=== PATIENT | male | born 1985 | race Caucasian/White ===

== ENCOUNTER 2017-07-08 17:32 | Emergency (ER) | payer SELFPAY ==
[~2017-07-08] VITALS: Ht 177.8 cm; Wt 79.4 kg
[~2017-07-08 17:32] MED LIST: BACTROBAN OINT22 GM PO; TOBREX OPHTH S2.5 ML OPH
[2017-07-08 18:17] LABS: BILIRUBIN NEGATIVE (NEGATIVE); BLOOD TRACE-INTACT (NEGATIVE); CLARITY CLEAR (CLEAR); COLOR YELLOW (YELLOW); GLUCOSE NEGATIVE (NEGATIVE); KETONE NEGATIVE (NEGATIVE); LEUKO ESTERASE 1+ (NEGATIVE); NITRITE NEGATIVE (NEGATIVE); PH 5.5 (5.0-9.0); SPECIFIC GRAVITY <= 1.005 (1.005-1.030); UROBILINOGEN 0.2 E.U./dl (0.2-1.0)
[2017-07-08 18:23] LABS: BACTERIA TRACE
== END 2017-07-08 19:01 | disposition home or self-care (01) ==
LOC: ED 17:32
PROVIDERS: Nurse Practitioner
DX: N34.2 Other urethritis (principal); A64 Unspecified sexually transmitted disease; F17.200 Nicotine dependence, unspecified, uncomplicated

== ENCOUNTER 2018-01-13 11:42 | Emergency (ER) | payer SELFPAY ==
[~2018-01-13] VITALS: Ht 175.2 cm; Wt 83.9 kg
[2018-01-13 12:19] LABS: BASO # 0.1 10*3/uL (0.0-0.1); BASO % 0.7 % (0.0-1.0); EOS # 0.5 10*3/uL (0.0-0.4); EOS % 4.7 % (1.0-4.0); HEMATOCRIT 45.3 % (42.0-52.0); HEMOGLOBIN 15.4 g/dl (14.0-18.0); LYMPH # 3.1 10*3/uL (1.3-4.4); LYMPH % 31.1 % (27.0-41.0); MEAN CELL VOLUME 93.2 fl (80.0-94.0); MEAN CORPUSCULAR HGB 31.7 pg (27.0-31.0); MEAN PLATELET VOLUME 9.5 fl (9.6-12.3); MONO % 10.4 % (3.0-9.0); NEUT # 5.2 10*3/uL (2.3-7.9); NEUT % 52.8 % (47.0-73.0); PLATELET COUNT AUTOMATED 220 10*3/uL (130-400); RED BLOOD COUNT 4.86 10*6/uL (4.50-5.90); RED CELL DISTRI WIDTH 12.8 % (0-14.5); WHITE BLOOD COUNT 9.8 10*3/uL (4.8-10.8)
[2018-01-13 12:33] LABS: ALBUMIN 4.2 gm/dl (3.1-4.5); ALKALINE PHOSPHATASE 85 U/L (45-117); BUN 8 mg/dl (7-24); CHLORIDE 103 mmol/L (98-107); CREATININE 1.04 mg/dL (0.70-1.30); POTASSIUM 5.1 mmol/L (3.5-5.1); SGOT/AST 65 IU/L (3-35); SGPT/ALT 108 U/L (12-78); SODIUM 140 mmol/L (136-145); TOTAL PROTEIN 8.3 gm/dL (6.4-8.2)
[2018-01-13 12:37] LABS: ETHYL ALCOHOL < 3.0 mg/dl (<3)
[2018-01-13 13:04] LABS: URINE AMPHETAMINES < 1000 (1000ng/ml); URINE BARBITURATES < 200 (200ng/ml); URINE BENZODIAZEPINES < 200 (200ng/ml); URINE CANNABINOIDS (THC) < 50 (50ng/ml); URINE COCAINE > 300 (300ng/ml); URINE METHADONE < 300 (300ng/ml); URINE OPIATES < 300 (300ng/ml)
[2018-01-13 13:06] LABS: URINE PHENCYCLIDINE < 25 (25ng/ml)
== END 2018-01-13 14:29 | disposition home or self-care (01) ==
LOC: ED 11:42
PROVIDERS: Emergency Medicine
DX: R25.1 Tremor, unspecified (principal); F19.10 Other psychoactive substance abuse, uncomplicated

== ENCOUNTER 2018-04-12 22:52 | Emergency (ER) | payer SELFPAY ==
[~2018-04-12] VITALS: Wt 89.8 kg
[2018-04-12] MEDS ORDERED: VIBRAMYCIN100 MG PO (23:00)
== END 2018-04-12 23:42 | disposition home or self-care (01) ==
LOC: ED 22:52
DX: A26.0 Cutaneous erysipeloid (principal); F10.10 Alcohol abuse, uncomplicated

== ENCOUNTER 2018-07-15 20:45 | Emergency (ER) | payer OTHER ==
--- NOTE | ~2018-07-15 | EKG ---
[place], [place] ELECTROCARDIOGRAM REPORT NAME: ELHAM WALSH UNIT #: [id number] ROOM: DOCTOR: EPIPHANY DRAFT REPORT BIRTHDATE: [birth year] [facility] Test Date: 2018-07-15 Test Time: 21:31:20 Pat Name: ELHAM WALSH Department: Room: Gender: M [employer] Operator: Dia Chapman : 1985 Requested By: GUMARO BATEMAN Order Number: [id number] Reading MD: Kelly Salcido MD Measurements Intervals Tucker Rate: 88 P: 65 OR: 175 QRS: 73 QRSD: 83 T: 19 QT: 350 QTc: 424 Interpretive Statements Sinus rhythm Probable left atrial enlargement Electronically Signed On 07-17-2018 6:21:43 PDT by Kelly Salcido MD CM:EKGRPT:ELECTROCARDIOGRAM REPORT 30 GUMARO BATEMAN EPIPHANY DRAFT REPORT GUMARO BATEMAN
[~2018-07-15 20:45] MED LIST changes: +VIBRAMYCIN100 MG PO
[2018-07-15 21:28] LABS: BASO # 0.1 10*3/uL (0.0-0.1); BASO % 0.7 % (0.0-1.0); EOS # 0.4 10*3/uL (0.0-0.4); EOS % 3.8 % (1.0-4.0); HEMATOCRIT 42.1 % (42.0-52.0); HEMOGLOBIN 14.7 g/dl (14.0-18.0); LYMPH # 2.5 10*3/uL (1.3-4.4); LYMPH % 25.8 % (27.0-41.0); MEAN CELL VOLUME 93.1 fl (80.0-94.0); MEAN CORPUSCULAR HGB 32.5 pg (27.0-31.0); MEAN CORPUSCULAR HGB CONC 34.9 g/dl (33.0-37.0); MONO # 0.9 10*3/uL (0.1-1.0); MONO % 8.9 % (3.0-9.0); NEUT # 5.8 10*3/uL (2.3-7.9); NEUT % 60.3 % (47.0-73.0); PLATELET COUNT AUTOMATED 271 10*3/uL (130-400); RED BLOOD COUNT 4.52 10*6/uL (4.50-5.90); RED CELL DISTRI WIDTH 13.1 % (0-14.5); WHITE BLOOD COUNT 9.6 10*3/uL (4.8-10.8)
[2018-07-15 21:42] LABS: BILIRUBIN NEGATIVE (NEGATIVE); BLOOD NEGATIVE (NEGATIVE); CLARITY SL CLOUDY (CLEAR); COLOR YELLOW (YELLOW); GLUCOSE NEGATIVE (NEGATIVE); KETONE NEGATIVE (NEGATIVE); LEUKO ESTERASE TRACE (NEGATIVE); NITRITE NEGATIVE (NEGATIVE); SPECIFIC GRAVITY >= 1.030 (1.005-1.030); UROBILINOGEN 0.2 E.U./dl (0.2-1.0)
[2018-07-15 21:47] LABS: ALBUMIN 4.2 gm/dl (3.1-4.5); ALKALINE PHOSPHATASE 84 U/L (45-117); BUN 8 mg/dl (7-24); CHLORIDE 109 mmol/L (98-107); CREATININE 0.88 mg/dL (0.70-1.30); SGOT/AST 196 IU/L (3-35); SGPT/ALT 243 U/L (12-78); SODIUM 140 mmol/L (136-145); TOTAL PROTEIN 8.3 gm/dL (6.4-8.2)
[2018-07-15 21:47] LABS: BACTERIA TRACE; EPITHELIAL CELLS 0-2; MUCOUS TRACE; RBC 0-2 rbc/hpf (0-2)
[2018-07-15 21:48] LABS: URINE AMPHETAMINES < 1000 (1000ng/ml); URINE BARBITURATES < 200 (200ng/ml); URINE BENZODIAZEPINES < 200 (200ng/ml); URINE CANNABINOIDS (THC) < 50 (50ng/ml); URINE COCAINE < 300 (300ng/ml); URINE METHADONE < 300 (300ng/ml); URINE OPIATES < 300 (300ng/ml)
[2018-07-15 21:49] LABS: URINE PHENCYCLIDINE < 25 (25ng/ml)
[2018-07-15 21:55] LABS: THYROID STIM HORMONE (HS) 0.761 uIU/ml (0.358-4.75)
[2018-07-15 21:56] LABS: ACETAMINOPHEN (TYLENOL) < 2.0 ug/ml (10-30)
== END 2018-07-15 22:31 ==
LOC: ED 20:45
PROVIDERS: Nurse Practitioner
DX: R45.851 Suicidal ideations (principal); F10.129 Alcohol abuse with intoxication, unspecified; F32.9 Major depressive disorder, single episode, unspecified; F19.10 Other psychoactive substance abuse, uncomplicated; Z59.0 Homelessness; Y90.9 Presence of alcohol in blood, level not specified

== ENCOUNTER 2019-09-22 09:33 | Emergency (ER) | payer MEDICAID ==
[~2019-09-22] VITALS: Ht 154.9 cm; Wt 81.6 kg
[2019-09-22] MEDS ORDERED: CEPHALEXIN500 M1 PO (11:06)
== END 2019-09-22 11:16 | disposition home or self-care (01) ==
LOC: ED 09:33
DX: S61.210A Laceration without foreign body of right index finger without damage to nail, initial encounter (principal); W45.8XXA Other foreign body or object entering through skin, initial encounter; Y93.89 Activity, other specified; Y92.89 Other specified places as the place of occurrence of the external cause; Y99.8 Other external cause status

== ENCOUNTER 2021-07-26 09:57 | Emergency (ER) | payer MEDICAID ==
[~2021-07-26] VITALS: Ht 170.1 cm; Wt 113.4 kg
[~2021-07-26 09:57] MED LIST changes: +CEPHALEXIN500 M1 PO
== END 2021-07-26 11:58 | disposition home or self-care (01) ==
LOC: ED 09:57
DX: S81.811A Laceration without foreign body, right lower leg, initial encounter (principal); W25.XXXA Contact with sharp glass, initial encounter; Y93.89 Activity, other specified; Y92.89 Other specified places as the place of occurrence of the external cause; Y99.9 Unspecified external cause status

== ENCOUNTER → 2021-08-08 | Outpatient (CLI) | payer MEDICAID | END | disposition home or self-care (01) | LOC: RESCLI 13:33 | PROVIDERS: ATTEND Internal Medicine | DX: Z48.02 Encounter for removal of sutures (principal); L40.9 Psoriasis, unspecified; Z00.00 Encounter for general adult medical examination without abnormal findings; Z79.899 Other long term (current) drug therapy; Z98.890 Other specified postprocedural states ==